=== PATIENT | female | born 2005 | race Hispanic/Latino ===

== ENCOUNTER 2025-10-12 20:49 | Emergency (ER) | payer MEDICAID ==
[~2025-10-12] VITALS: Ht 144.8 cm; Wt 51.7 kg
[2025-10-12 21:01] VITALS: BP 128/66; PULSE 92; RESP 18; TEMP 98.4; O2SAT 98
--- NOTE | 2025-10-12 21:11 | ERN ---
ED Note History of Present Illness Stated Complaint: 8.5 WEEKS . LASHAE Chief Complaint: Allergic Reaction Time Seen by MD: 21:02 Dictation: PATIENT IS A 20-YEAR-OLD FEMALE HERE WHO IS EIGHT WEEKS WITH COMPLAINTS OF HAVING URTICARIA TO HER FACE IN HER CHEST ONSET WAS 1 HOUR PRIOR TO HER. NO ANGIOEDEMA NO CHANGE VOICE IS CLEAR. SHE STATES SHE HAS HAD THIS ONCE BEFORE HOWEVER PURSUED IT SEVERAL YEARS AGO WHEN SHE WAS EATING FISH TO SHE HAS HAD NO PELVIC PAIN OR VAGINAL BLEEDING TOLD TO SEE HER DOCTOR TUESDAY WITHOUT FAIL Allergies: Coded Allergies: No Known Allergies (Unverified Allergy, Unknown, 08/01/23) Past Medical History Past Medical History: No Pertinent History Surgical History: None Family History: Negative Social History: Negative, Lives with family LMP: Aug 11, 2025 : 1 RN Note Reviewed/Agreed w/PFSH: Yes Review of System Dictation CONSTITUTIONAL: NEGATIVE EXCEPT FOR HPI HEAD/FACE: NEGATIVE EXCEPT FOR HPI EENT: NEGATIVE EXCEPT FOR HPI RESPIRATORY: NEGATIVE EXCEPT FOR HPI GASTROINTESTINAL/ABDOMINAL: NEGATIVE EXCEPT FOR HPI GENITOURINARY: NEGATIVE EXCEPT FOR HPI MUSCULOSKELETAL: NEGATIVE EXCEPT FOR HPI INTEGUMENTARY: NEGATIVE EXCEPT FOR HPI RASH NEUROLOGICAL/PSYCH: NEGATIVE EXCEPT FOR HPI HEMATOLOGIC/LYMPHATIC: NEGATIVE EXCEPT FOR HPI ALL SYSTEMS NEGATIVE, EXCEPT NOTED ABOVE. 13 POINT REVIEW OF SYSTEMS ASSESSED AND ALL NEGATIVE EXCEPT FOR ABOVE. Initial Vital Sign VS Vital Signs Date Time Temp Pulse Resp B/P (MAP) Pulse Ox O2 Delivery O2 Flow Rate FiO2 10/12/25 20:52 98.1 75 16 127/63 100 Room Air 10/12/25 21:01 0 21 Physical Exam Dictation VITAL SIGNS REVIEWED GENERAL APPEARANCE: ALERT, ORIENTED X 3, NO ACUTE DISTRESS, WELL DEVELOPED, NOURISHED. HEAD AND FACE: NON-TRAUMATIC. EYES: PERRL, PINK CONJUNCTIVAS, EYELID NO TRAUMA, ANTERIOR CHAMBER WITH ARCUS SENILIS. EARS: PINNAS INTACT AND NO SIGNS OF TRAUMA OR ERYTHEMA EAR CANALS CLEAR AND NO DISCHARGE TM NO ERYTHEMA NOSE: NO DISCHARGE, NO BLEEDING. OROPHARYNX: MOUTH NORMAL, TONGUE PINK, VOICE IS CLEAR, NO ACUTE DISTRESS NO ANGIOEDEMA PHARYNX CLEAR,NO ERYTHEMA, TONSILS NO EXUDATES, NO ABSCESSES NOTED, MUCOUS MEMBRANE MOIST NECK: SUPPLE, NON-TENDER, NO THYROMEGALY, NO MASSES, NO JVD, NO BRUITS BREAST:DEFERRED CHEST:NO TENDERNESS, NO CREPITUS, NO PARADOXICAL MOVEMENT, NO RETRACTIONS LUNGS:CLEAR, WELL-VENTILATED, SYMMETRIC, NO RALES, NO WHEEZING, NO RHONCHI, NO STRIDOR, GOOD BREATH SOUNDS BILATERALLY HEART: REGULAR RATE, REGULAR RHYTHM, NO MURMUR, NO GALLOPS VASCULAR: NO PERIPHERAL EDEMA, ABDOMEN: SOFT, POSITIVE BOWEL SOUNDS, NONDISTENDED, NO GUARDING, NONTENDER, NO REBOUND, NO MASSES NO HEPATOMEGALY, NO SPLENOMEGALY, NO BOCANEGRA'S SIGN, NO HERNIAS. RECTAL: DEFERRED GENITAL: DEFERRED NEUROLOGICAL: NORMAL SPEECH, MOTOR FUNCTION INTACT, SENSORY FUNCTION INTACT MUSCULOSKELETAL: NECK NONTENDER, FULL RANGE OF MOTION, BACK NONTENDER, FULL RANGE OF MOTION, EXTREMITIES: NONTENDER, FULL RANGE OF MOTION SKIN: COLOR PINK, DRY, URTICARIA TO HER FACE. NONE ON HER CHEST LYMPHATIC: DEFERRED Results (Laboratory/Radiology) Labs Reviewed?: Yes ED Course ED Course Vital Signs Date Time Temp Pulse Resp B/P (MAP) Pulse Ox O2 Delivery O2 Flow Rate FiO2 10/12/25 21:01 98.4 92 18 128/66 98 Room Air* 0 21 10/12/25 20:52 98.1 75 16 127/63 100 Room Air Medical Decision Making MDM MEDICAL DECISION-MAKING BASED ON EMPIRIC TREATMENT FOR POSSIBLE FOOD ALLERGY SAID SHE IS HERE WITH A EATING FISH. TOLD TO AVOID ANY FISSURE SHOW FISTULA SEES HER [employer] ROOM WORKER DOCTOR ON TUESDAY. WE WILL BE GIVEN PEPCID AND BENADRYL SENT HOME DX & DISP Disposition: Discharge Departure Impression: Primary Impression: Allergic reaction Additional Impression: Condition: Stable Scripts Diphenhydramine HCl (Benadryl) 50 Mg Cap 50 MG PO Q6H for itching/rash, #20 CAP 0 Refills Prov: NEREYDAMERVATKISHAN FILM WAXER 10/12/25 Additional Instructions: FOLLOW-UP WITH PRIMARY CARE PROVIDER IN 1 TO 2 DAYS. TAKE MEDICATIONS DIRECTED HERE IN THE EMERGENCY ROOM. OKAY TO CONTINUE HOME MEDICATIONS UNLESS OTHERWISE DISCUSSED DURING YOUR VISIT IN THE EMERGENCY ROOM TODAY. RETURN TO YOUR NEAREST EMERGENCY ROOM IF SYMPTOMS WORSEN OR IF THERE IS NO IMPROVEMENT. CALL 911 IF YOU NEED IMMEDIATE ASSISTANCE. TAKE TYLENOL OR MOTRIN [id number] NEEDED AND IF NO CONTRAINDICATIONS ARE PRESENT. INCREASE ORAL HYDRATION. A WOUND CULTURE OR URINE CULTURE WAS ORDERED HERE IN THE EMERGENCY ROOM DEPARTMENT PLEASE FOLLOW-UP WITH PRIMARY CARE PROVIDER AND ADVISE THEM TO GET REPEAT PORTS FROM OUR FACILITY. IF YOU HAD ANY ELLA WRAP/SPLINTS THAT WERE APPLIED HERE, PLEASE DO NOT REMOVE THEM UNTIL YOU SEE YOUR PRIMARY CARE OR SPECIALTY. NO FISSURE SHELLFISH UNTIL CLEARED BY YOUR [employer] RO[employer] WORKER DOCTOR ON TUESDAY OR TUESDAY. TAKE BENADRYL 50 MG EVERY 6-8 HOURS FOR THREE MORE DOSES. SEE YOUR [employer] RO[employer] WORKER DOCTOR ON TUESDAY FOR MANAGEMENT Referrals: SELF,REFERRAL (PCP) Time of Disposition: 21:10 I have reviewed the case, and I agree with, Diagnosis and Plan KISHAN HERNÁNDEZP Oct 12, 2025 21:11
[2025-10-12] MEDS: FAMOTIDINE 20MG TAB ONE (21:15)
[2025-10-12] MEDS: FAMOTIDINE 20MG TAB PO ONE (21:16)
== END 2025-10-12 21:49 | disposition home or self-care (01) ==
LOC: EDH 20:49
DX: O99.711 Diseases of the skin and subcutaneous tissue complicating pregnancy, first trimester (principal); T78.40XA Allergy, unspecified, initial encounter; Z3A.08 8 weeks gestation of pregnancy; X58.XXXA Exposure to other specified factors, initial encounter
CPT/HCPCS: 99283; 96372; J1200